=== PATIENT | female | born 1965 | race Caucasian/White ===

== ENCOUNTER 2023-09-17 20:10 | Emergency (ER) | payer OTHER ==
[~2023-09-17] VITALS: Ht 170.2 cm; Wt 60.0 kg
[2023-09-17 20:11] VITALS: BP 130/71; PULSE 89; RESP 16; TEMP 98.7; O2SAT 98
== END 2023-09-18 08:40 | disposition home or self-care (01) ==
LOC: ER 20:10
DX: Z91.410 Personal history of adult physical and sexual abuse (principal); F10.20 Alcohol dependence, uncomplicated
CPT/HCPCS: 99283

== ENCOUNTER 2024-01-31 16:01 | Emergency (ER) | payer OTHER ==
[~2024-01-31] VITALS: Ht 162.6 cm; Wt 66.0 kg
[~2024-01-31 16:01] MED LIST: LORA2TAB95 MT; QUET300T2 PO; TRAZ150T78 PO
[2024-01-31] MEDS: ASPIRIN 81MG TABLET PO ONE (16:15)
[2024-01-31 17:31] LABS: BASOPHILS % 1.3 % (0.0-2.0); DIFFERENTIAL COMMENT 0; EOSINOPHILS % 3.5 % (0.0-5.0); HEMATOCRIT. 39.9 % (36.0-48.0); LYMPHOCYTES % 58.9 % (20.0-50.0); MEAN CORPUSCULAR HEMOGLOBIN 27.2 pg (28.0-32.0); MEAN CORPUSCULAR HGB CONC 32.6 g/dL (31.0-37.0); MEAN CORPUSCULAR VOLUME 83.5 fL (81.0-99.0); MEAN PLATELET VOLUME 9.6 fl (7.4-10.4); MONOCYTES % 4.3 % (2.0-8.0); PLATELET 245 x1000/uL (130-400); RED BLOOD CELL COUNT 4.78 mill/uL (4.2-5.4); RED CELL DISTRIBUTION WIDTH 18.2 % (11.6-14.6); WHITE BLOOD COUNT 5.8 x1000/uL (4.5-11.0)
[2024-01-31 17:58] LABS: ALANINE AMINOTRANSFERASE 38 IU/L (10-49); ALBUMIN 4.7 g/dL (3.2-4.8); ASPARTATE AMINOTRANSFERASE 59 IU/L (<34); BILIRUBIN TOTAL 0.3 mg/dL (0.1-1.0); CALCIUM 9.3 mg/dL (8.7-10.4); CARBON DIOXIDE 24 mEq/L (21-32); CHLORIDE 108 mEq/L (98-107); CREATININE 0.6 mg/dL (0.6-1.0); ETHANOL BLOOD 281 mg/dL (<10); GLUCOSE 102 mg/dL (70-105); POTASSIUM 3.8 mEq/L (3.5-5.1); PROTEIN TOTAL 8.5 g/dL (6.0-8.3); SODIUM 146 mEq/L (136-145); TROPONIN I HIGH SENSITIVITY 16 ng/L (3.0-34); UREA NITROGEN BLOOD 7 mg/dL (9-23)
[2024-01-31] MEDS: ASPIRIN 81MG TABLET PO SCH (18:10)
[2024-01-31 18:35] VITALS: O2SAT 97
[2024-01-31 20:44] LABS: TROPONIN I HIGH SENSITIVITY 14 ng/L (3.0-34)
[2024-01-31] MEDS: LORAZEPAM 2MG/ML INJ IM ONE (20:53)
[2024-01-31] MEDS: ONDANSETRON HCL 4MG/2ML INJ IM ONE (20:53)
[2024-02-01 12:45] VITALS: BP 121/82; PULSE 85; RESP 16; TEMP 98.2
== END 2024-02-01 12:46 | disposition home or self-care (01) ==
LOC: ER 16:01
DX: F10.129 Alcohol abuse with intoxication, unspecified (principal); R45.851 Suicidal ideations; I25.2 Old myocardial infarction; Y90.8 Blood alcohol level of 240 mg/100 ml or more
CPT/HCPCS: 80053; 80320; 82962; 83880; 85025; 84484; 36415; 71045; 93005; 96372; 99285; Z7610 ×2; J2060; J2405; G0480

== ENCOUNTER 2024-09-12 00:37 | Emergency (ER) | payer OTHER ==
[~2024-09-12] VITALS: Ht 162.6 cm; Wt 76.0 kg
[2024-09-12 00:42] VITALS: O2SAT 97
[2024-09-12 02:26] LABS: CHLORIDE 101 mEq/L (98-107); POTASSIUM 3.6 mEq/L (3.5-5.1); SODIUM 139 mEq/L (136-145)
[2024-09-12 02:27] LABS: CALCIUM 9.4 mg/dL (8.7-10.4); CARBON DIOXIDE 26 mEq/L (21-32)
[2024-09-12 02:32] LABS: CREATININE 0.7 mg/dL (0.6-1.0); GLUCOSE 119 mg/dL (70-105); UREA NITROGEN BLOOD 13 mg/dL (9-23)
[2024-09-12 02:33] LABS: ETHANOL BLOOD 161 mg/dL (<10)
[2024-09-12 02:45] LABS: BASOPHILS % 0.6 % (0.0-2.0); HEMATOCRIT. 35.4 % (36.0-48.0); HEMOGLOBIN. 11.5 g/dL (12.0-16.0); LYMPHOCYTES % 25.1 % (20.0-50.0); MEAN CORPUSCULAR HGB CONC 32.5 g/dL (31.0-37.0); MEAN CORPUSCULAR VOLUME 83.1 fL (81.0-99.0); MEAN PLATELET VOLUME 9.4 fl (7.4-10.4); MONOCYTES % 3.1 % (2.0-8.0); NEUTROPHILS % 69.2 % (40.0-76.0); PLATELET 301 x1000/uL (130-400); RED BLOOD CELL COUNT 4.26 mill/uL (4.2-5.4); RED CELL DISTRIBUTION WIDTH 16.6 % (11.6-14.6); WHITE BLOOD COUNT 7.9 x1000/uL (4.5-11.0)
[2024-09-12 04:32] VITALS: BP 116/58; PULSE 81; RESP 16; O2SAT 100
== END 2024-09-12 04:36 ==
LOC: ER 00:37
DX: F10.129 Alcohol abuse with intoxication, unspecified (principal); I50.9 Heart failure, unspecified; R51.9 Headache, unspecified; F31.9 Bipolar disorder, unspecified; Y90.9 Presence of alcohol in blood, level not specified
CPT/HCPCS: 80048; 80320; 85025; 36415; 71045; 70450; 99284; A4663; Z7610; A4606; G0480